=== PATIENT | male | born 1935 | race Caucasian/White ===

== ENCOUNTER 2016-06-09 13:11 | Inpatient (IN) | payer MEDICARE, BC ==
[~2016-06-09] VITALS: Ht 185.4 cm; Wt 124.0 kg
[2016-06-09] VITALS (12 sets, daily range): BP systolic 100–131; BP diastolic 60–84; PULSE 71–133; RESP 16–23; TEMP 98.2–98.6; O2SAT 90–97
[~2016-06-09 13:11] MED LIST: CITA-48 PO; DOCU100T9 PO; FURO1TAB93 PO; HYDR-3580 PO; OMEG100010 PO; POTA-243 PO; RIVA15 PO; TOPR50TA PO; XANA1TAB6 PO; XANA2TAB2 PO
[2016-06-09] MEDS ORDERED: SODIUM CHLORIDE 0.9% FLUSH 10 ML FLUSH IVF PRN ×2 (13:30)
[2016-06-09] MEDS ORDERED: DILTIAZEM INJ 125 MG in SODIUM CHLORIDE 0.9% INJ 100 ML IV SCH (13:30)
[2016-06-09] MEDS ORDERED: DILTIAZEM HCL 25 MG/5 ML VIAL IV ONE (13:30)
--- NOTE | 2016-06-09 13:43 | RADRPT ---
EXAM DATE/TIME: 06/09/2016 13:21 [facility] COMPARISON: CHEST PA & LAT, February 09, 2013, 10:31. INDICATIONS : Chest pain, shortness of breath, and cough. MEDICAL HISTORY : None. SURGICAL HISTORY : Valve replacement. Stent. ENCOUNTER: Initial ACUITY: 3 days PAIN SCORE: 4/10 LOCATION: Bilateral chest FINDINGS: Cardiomegaly, sternotomy wires and aortic calcification. A minimal left lower lobe airspace disease. CONCLUSION: Left basilar airspace disease. Moe Houston MD on June 09, 2016 at 13:40 Board Certified Radiologist. This report was verified electronically.
[2016-06-09] MEDS ORDERED: XARE20TA PO (13:48)
[2016-06-09] MEDS ORDERED: FURO1TAB62 PO (13:48)
[2016-06-09] MEDS ORDERED: OMEG100010 PO (13:48)
[2016-06-09] MEDS ORDERED: FERR325T PO (13:48)
[2016-06-09] MEDS ORDERED: COLA100C3 PO (13:48)
[2016-06-09] MEDS ORDERED: TOPR50TA PO (13:48)
[2016-06-09] MEDS ORDERED: HYDR-3115 PO (13:48)
[2016-06-09] MEDS ORDERED: POTA-88 PO (13:48)
[2016-06-09] MEDS ORDERED: LIPI20TA PO (13:48)
[2016-06-09] MEDS ORDERED: SERT-132 PO (13:48)
[2016-06-09 13:53] LABS: AUTOMATED NEUTROPHIL # 6.7 TH/MM3 (1.8-7.7); BASOPHIL % 0.7 % (0.0-2.0); EOSINOPHIL % 0.3 % (0.0-4.0); HEMATOCRIT 45.5 % (39.0-51.0); LYMPH % 1.6 % (9.0-44.0); LYMPHOCYTE # 0.1 TH/MM3 (1.0-4.8); MEAN CELL VOLUME 78.7 FL (80.0-100.0); MEAN CORPUSCULAR HEMOGLOBIN 25.8 PG (27.0-34.0); MEAN CORPUSCULAR HGB CONC 32.8 % (32.0-36.0); MONO % 4.6 % (0.0-8.0); NEUT % 92.8 % (16.0-70.0); PLATELET COUNT 78 TH/MM3 (150-450); RED BLOOD COUNT 5.79 MIL/MM3 (4.50-5.90); RED CELL DISTRIBUTION WIDTH 16.8 % (11.6-17.2); WHITE BLOOD COUNT 7.2 TH/MM3 (4.0-11.0)
[2016-06-09 13:54] LABS: HEMO FLAGS AUTO DIFF
[2016-06-09] MEDS ORDERED: AZITHROMYCIN INJ 500 MG in SODIUM CHLOR 0.9% 250 ML INJ 250 ML IV ONE (14:00)
[2016-06-09] MEDS ORDERED: cefTRIAXone INJ 1,000 MG in SODIUM CHLORIDE 0.9% INJ 100 ML IV ONE (14:00)
[2016-06-09 14:02] LABS: APTT (PATIENT) 31.1 SEC (24.3-30.1); INTERNATIONAL NORMALIZED RATIO 1.4 RATIO; PROTHROMBIN TIME - PATIENT 15.4 SEC (9.8-11.6)
[2016-06-09 14:10] LABS: BICARBONATE 23.1 MEQ/L (21.0-32.0); MAGNESIUM 2.1 MG/DL (1.5-2.5); POTASSIUM 3.7 MEQ/L (3.5-5.1)
[2016-06-09 14:39] LABS: BANDS 19 % (0-6); NEUTROPHIL # MANUAL DIFF 6.8 TH/MM3 (1.8-7.7); POLYS (SEG NEUTROPHILS) 75 % (16-70); WBC DIFF SAMPLE 100
[2016-06-09 14:40] LABS: OVALOCYTES 1+ (NORMAL); PLATELET ESTIMATE SMEAR LOW (NORMAL); PLATELET MORPHOLOGY NORMAL (NORMAL); SCAN/DIFF FINAL DIFF MANUAL
--- NOTE | 2016-06-09 14:42 | PD ---
HPI Chief Complaint: Cardiac Complaint Time Seen by Provider: 13:16 Travel History International Travel<30 days: No Contact w/Intl Traveler<30days: No Traveled to known affect area: No History of Present Illness HPI The patient's 80 years old. He arrives here with 3-4 days of generalized weakness. The reports he was rigorous this morning. EMS reports on scene the pulse was almost 200. He received diltiazem and it decreased to about 100. The time of my exam the patient offers no weakness complaint as well as shortness of breath. He denies chest pain. PFSH Past Medical History Hx Anticoagulant Therapy: Yes Arthritis: Yes Asthma: No Atrial Fibrillation: Yes Autoimmune Disease: No Anxiety: Yes Heart Rhythm Problems: Yes Cancer: No Cardiac Catheterization: Yes Cardiovascular Problems: Yes High Cholesterol: Yes Chemotherapy: No Chest Pain: Yes Congestive Heart Failure: No COPD: No Cerebrovascular Accident: No Diabetes: No Endocrine: No GERD: No Genitourinary: No Hiatal Hernia: No Hypertension: Yes Immune Disorder: No Kidney Stones: No Musculoskeletal: No Neurologic: No Psychiatric: No Reproductive: No Respiratory: No Migraines: No Radiation Therapy: No Renal Failure: No Seizures: No Sickle Cell Disease: No Sleep Apnea: No Thyroid Disease: No Ulcer: No Past Surgical History Abdominal Aneurysm Repair: Yes (2010 ) Abdominal Surgery: Yes AICD: No Arteriovenous Shunt: No Cardiac Surgery: Yes (AORTIC ANEURYSM REPAIR) Ear Surgery: No Eye Surgery: No Genitourinary Surgery: No Gynecologic Surgery: No Insulin Pump: No Joint Replacement: No Oral Surgery: No Pacemaker: No Thoracic Surgery: No Valve Replacement: Yes (2010) Other Surgery: Yes (BILAT FEMORAL ANEURYSM REPAIR WITH STENTS PLACED) Social History Alcohol Use: No Tobacco Use: No (QUIT 25+ YRS AGO, MOKES FOR 15+ YRS 3/4 PPD OR LESS) Substance Use: No Allergies-Medications (Allergen,Severity, Reaction): Coded Allergies: No Known Allergies (Unverified , 02/08/13) Reported Meds & Prescriptions Reported Meds & Active Scripts Active Reported Wolford 3 1000 mg (Wolford-3 Fatty Acids) 1 Cap Cap 3,000 Mg PO DAILY Toprol XL (Metoprolol Succinate) 50 Mg Tab 50 Mg PO DAILY Lipitor (Atorvastatin Calcium) 20 Mg Tab 20 Mg PO HS Sertraline (Sertraline HCl) 50 Mg Tab 50 Mg PO DAILY Ferrous Sulfate 325 Mg Tab 325 Mg PO DAILY Xarelto (Rivaroxaban) 20 Mg Tab 20 Mg PO DAILY IN THE EVENING Colace (Docusate Sodium) 100 Mg Cap 100 Mg PO DAILY PRN Klor-Con M10 (Potassium Chloride Microencaps) 10 Meq Tab 10 Meq PO TWICE A WEEK Lasix (Furosemide) 20 Mg Tab 20 Mg PO WEEKLY Vicodin Hp (Hydrocodone-Acetaminophen) 10-300 Tab 0.5 Tab PO Q6H PRN Review of Systems Except as stated in HPI: all other systems reviewed are Neg General / Constitutional: No: Fever Physical Exam Narrative GENERAL: 80 yo M, WNWD, mild distress SKIN: Warm and dry. HEAD: Atraumatic. Normocephalic. EYES: Pupils equal and round. No scleral icterus. No injection or drainage. ENT: No nasal bleeding or discharge. Mucous membranes pink and moist. NECK: Trachea midline. No JVD. CARDIOVASCULAR: Irregular. Tachycardia. RESPIRATORY: No accessory muscle use. Clear to auscultation. Breath sounds equal bilaterally. GASTROINTESTINAL: Abdomen soft, non-tender, nondistended. Hepatic and splenic margins not palpable. MUSCULOSKELETAL: Extremities without clubbing, cyanosis, or edema. No obvious deformities. NEUROLOGICAL: Awake and alert. No obvious cranial nerve deficits. Motor grossly within normal limits. Five out of 5 muscle strength in the arms and legs. Normal speech. PSYCHIATRIC: Appropriate mood and affect; insight and judgment normal. Data Data Last Documented VS Vital Signs Date Time Temp Pulse Resp B/P Pulse Ox O2 Delivery O2 Flow Rate FiO2 06/09/16 14:03 124 18 131/62 93 Nasal Cannula 2 06/09/16 13:27 98.6 VS reviewed Orders Ecg Monitoring (06/09/16 13:24) Blood Pressure (06/09/16 13:24) Iv Access Insert/Monitor (06/09/16 13:24) Oximetry (06/09/16 13:24) Vital Signs (06/09/16 13:24) Diltiazem Inj (Cardizem Inj) (06/09/16 13:30) Sodium Chloride 0.9% Flush (Ns Flush) (06/09/16 13:30) Diltiazem Inj (Cardizem Inj) (06/09/16 13:30) Electrocardiogram (06/09/16 13:24) Basic Metabolic Panel (Bmp) (06/09/16 13:24) B-Type Natriuretic Peptide (06/09/16 13:24) Ckmb (Isoenzyme) Profile (06/09/16 13:24) Complete Blood Count With Diff (06/09/16 13:24) Magnesium (Mg) (06/09/16 13:24) Prothrombin Time / Inr (Pt) (06/09/16 13:24) Act Partial Throm Time (Ptt) (06/09/16 13:24) Troponin I (06/09/16 13:24) Chest, Single Ap (06/09/16 13:24) Sodium Chloride 0.9% Flush (Ns Flush) (06/09/16 13:30) Blood Culture (06/09/16 13:46) Ceftriaxone Inj (Rocephin Inj) (06/09/16 14:00) Azithromycin Inj (Zithromax Inj) (06/09/16 14:00) Admit Order (Ed Use Only) (06/09/16 14:46) Labs Laboratory Tests Test 06/09/16 06/09/16 06/09/16 12:30 13:30 13:40 White Blood Count 7.2 TH/MM3 Red Blood Count 5.79 MIL/MM3 Hemoglobin 14.9 GM/DL Hematocrit 45.5 % Mean Corpuscular Volume 78.7 FL Mean Corpuscular Hemoglobin 25.8 PG Mean Corpuscular Hemoglobin 32.8 % Concent Red Cell Distribution Width 16.8 % Platelet Count 78 TH/MM3 Mean Platelet Volume 8.7 FL Neutrophils (%) (Auto) 92.8 % Lymphocytes (%) (Auto) 1.6 % Monocytes (%) (Auto) 4.6 % Eosinophils (%) (Auto) 0.3 % Basophils (%) (Auto) 0.7 % Neutrophils # (Auto) 6.7 TH/MM3 Lymphocytes # (Auto) 0.1 TH/MM3 Monocytes # (Auto) 0.3 TH/MM3 Eosinophils # (Auto) 0.0 TH/MM3 Basophils # (Auto) 0.0 TH/MM3 CBC Comment AUTO DIFF Differential Total Cells 100 Counted Neutrophils % (Manual) 75 % Band Neutrophils % 19 % Lymphocytes % 4 % Monocytes % 2 % Neutrophils # (Manual) 6.8 TH/MM3 Differential Comment FINAL DIFF MANUAL Platelet Estimate LOW Platelet Morphology Comment NORMAL Ovalocytes 1+ Sodium Level 139 MEQ/L Potassium Level 3.7 MEQ/L Chloride Level 106 MEQ/L Carbon Dioxide Level 23.1 MEQ/L Anion Gap 10 MEQ/L Blood Urea Nitrogen 21 MG/DL Creatinine 0.99 MG/DL Estimat Glomerular Filtration 73 ML/MIN Rate Random Glucose 129 MG/DL Calcium Level 8.6 MG/DL Magnesium Level 2.1 MG/DL Total Creatine Kinase 56 U/L Troponin I 0.03 NG/ML Prothrombin Time 15.4 SEC Prothromb Time International 1.4 RATIO Ratio Activated Partial 31.1 SEC Thromboplast Time B-Type Natriuretic Peptide 285 PG/ML MDM Medical Decision Making Medical Screen Exam Complete: Yes Emergency Medical Condition: Yes Medical Record Reviewed: Yes Differential Diagnosis NSTEMI, unstable angina, coronary vasospasm, PE, PTX, aortic dissection, pericarditis, myocarditis, endocarditis, PNA, esophageal disease, aneurysm, musculoskeletal etiologies, anxiety, cocaine/sympathomimetic abuse Narrative Course CBC & BMP Diagram 06/09/16 12:30 BNP 285 Tn 0.03 EKG: atrial fibrillation, rate 135 BNP 285 INR 1.4 Last 24 hours Impressions Chest X-Ray 06/09/16 1324 Signed Impressions: Service Date/Time: Thursday, June 09, 2016 13:21 - CONCLUSION: Left basilar airspace disease. Moe Houston MD Patient has A. fib with RVR and a left base pneumonia. Diltiazem gtt started. Rocephin/Azithromycin started. Blood cultures drawn. Heart rate is about 117 at 2:50 PM, the time of admission. Patient resting comfortably in his room speaking full sentences. Sepsis Criteria SIRS Criteria (2 or more): Heart rate over 90, WBC > 77642, < 4000 or > 10% bands Sepsis Criteria (SIRS+source): Infect source susp/known Diagnosis Primary Impression: Atrial fibrillation with RVR Additional Impressions: PNA (pneumonia) Qualified Code: J18.1 - Pneumonia of left lower lobe due to infectious organism Sepsis Qualified Code: A41.9 - Sepsis, due to unspecified organism Admitting Information Admitting Physician Requests: Admit Osbaldo Grove MD Jun 09, 2016 14:42
[2016-06-09] MEDS ORDERED: DOCUSATE SODIUM 100 MG CAP PO PRN (16:00)
[2016-06-09] MEDS: METOPROLOL SUCCINATE 50 MG EXTENDED RELEASE TAB PO SCH (16:29)
[2016-06-09] MEDS: FERROUS SULFATE 325 MG (65 MG ELEMENTAL IRON) TAB PO SCH (16:29)
[2016-06-09] MEDS ORDERED: SODIUM CHLORIDE 0.9% FLUSH 10 ML FLUSH IV FLUSH PRN (17:00)
[2016-06-09] MEDS ORDERED: ONDANSETRON HCL 4 MG/2 ML VIAL IVP PRN (17:00)
[2016-06-09] MEDS ORDERED: ACETAMINOPHEN 325 MG TAB PO PRN (17:00)
[2016-06-09] MEDS: SERTRALINE HCL 50 MG TAB PO SCH (17:09)
--- NOTE | 2016-06-09 17:33 | MH ---
DATE OF ADMISSION 06/09/2016 ADMITTING PHYSICIAN: WINSTON HEATH MD CHIEF COMPLAINT Weakness and tiredness HISTORY OF PRESENT ILLNESS The patient is a pleasant 80 year old white male who presented to the emergency room with complaints of 3-4 days of generalized weakness. Per patient, two days ago he had abdominal pain, nausea and vomiting, also had been having loose stools and has no noticed that he has been becoming progressively weak. He denies any chest pain or palpitation. He denies any shortness of breath. The [facility] Medical Service reports on the scene the pulses was almost 200. He received Diltiazem en route and it decreased to about 100. At the time of presentation to the emergency room, the pulse was noted to be 124 and the patient was started on Diltiazem drip. PAST MEDICAL HISTORY 1. Atrial fibrillation 2. Congestive heart failure 3. Hypertension 4. Hyperlipidemia 5. Coronary artery disease 6. History of aneurysms PAST SURGICAL HISTORY 1. History of abdominal aneurysm repair in 2010. 2. History of aortic aneurysm repair 3. 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 SOCIAL HISTORY Quit smoking 25 years ago. Smoked for about 15 years less than one pack per day. No alcohol or illicit drug use. FAMILY HISTORY Significant for coronary artery disease. ALLERGIES NO KNOWN DRUG ALLERGIES MEDICATIONS Please see the reconciled medication list. REVIEW OF SYSTEMS Positive for generalized weakness, nausea, vomiting and abdominal pain. PHYSICAL EXAMINATION GENERAL: An 80 year old white male who is lying in bed in no acute distress. This is after patient has received Diltiazem. HEENT: Head is normocephalic, atraumatic. Pupils are equal, round and reactive to light and accommodation. Extraocular movements are intact. NECK: Supple. Trachea is in midline. No jugular venous distention. CARDIOVASCULAR: Irregularly irregular. Tachycardia. No murmur. RESPIRATORY: Clear to auscultation bilaterally. No accessory muscle use. GASTROINTESTINAL: Abdomen is soft, nontender, nondistended. Bowel sounds heard in all four quadrants. MUSCULOSKELETAL: No cyanosis, congestion or edema. NEUROLOGIC: Awake and alert times four. No focal deficit. PSYCHIATRIC: Appropriate mood and affect. Insight and judgment normal. VITAL SIGNS: Blood pressure is 131/62, pulse 124, pulse ox 93% on room air, temperature is 98.6, respirations are 18. LABORATORY DATA WBCs 7.2, hemoglobin 14.9, hematocrit 45.5, platelets 78,000. Sodium 139, potassium 3.7, BUN 21, creatinine 0.99, magnesium 2.1, troponin I 0.03. PT 15.4, INR 1.4, BNP 285. IMAGING STUDIES Chest x-ray - left basilar airspace disease, cardiomegaly, sternotomy ____ aortic calcification. CARDIOLOGY STUDIES 12 lead electrocardiogram, irregularly irregular with tachycardia. IMPRESSION 1. Atrial fibrillation with rapid ventricular rate. 2. Pneumonia 3. Possible sepsis 4. Generalized weakness 5. Hypertension 6. Hyperlipidemia 7. History of coronary artery disease 8. History of abdominal aneurysm repair. 9. History of bilateral femoral aneurysm repair. 10. Depression PLAN We will admit the patient. Start the patient on continuous telemetry monitoring. Check troponin q 6 hrs x2. We will continue Diltiazem drip, titrate accordingly. Consult cardiology. We will monitor the patient's vitals closely. We will start the patient empirically on Rocephin and Azithromycin. We will monitor the CBC and BMP. We will do oxygen two liters and maintain the pulse ox above 92%. We will also request lipid profile as well as TSH and free T4. We will request a 2-D echocardiogram. We will continue the home medications as appropriate. Deep venous thrombosis prophylaxis with Xarelto. GI prophylaxis with protein pump inhibitor. Further management depends upon the hospital course. We will monitor the patient closely during the hospital stay. The patient is acute ill,has presented with atrial fibrillation with rapid ventricular rate and pneumonia. Need to rule out sepsis, also need to rule out any cardiac factors. Will need a complete cardiology evaluation and IV antibiotics. The patient meets inpatient criteria for three midnights. Anticipate discharge to home with home health when stable. JONI
[2016-06-09] MEDS ORDERED: DIATRIZOATE MEGLUM/DIATRIZOATE SOD 9 ML CUP PO ONE (18:45)
--- NOTE | 2016-06-09 18:47 | EKG ---
Date Performed: 06/09/2016 Time Performed: 13:19:31 PTAGE: 80 years EKG: ATRIAL FIBRILLATION WITH RAPID VENTRICULAR RESPONSE MILD ST CHANGES ABNORMAL ECG PREVIOUS TRACING : 02/08/2013 14.04 Compared to prior tracing no significant change DOCTOR: Jose Malik Interpretating Date/Time 06/09/2016 18:47:19
[2016-06-09] MEDS: RIVAROXABAN 20 MG TAB PO SCH (18:49)
[2016-06-09] MEDS: ATORVASTATIN 20 MG TAB PO SCH (20:42)
[2016-06-09] MEDS: FAMOTIDINE 20 MG TAB PO SCH (20:42)
[2016-06-09] MEDS: DOCUSATE SODIUM 100 MG CAP PO SCH (20:42)
[2016-06-09] MEDS: SODIUM CHLORIDE 0.9% FLUSH 10 ML FLUSH IV FLUSH SCH (20:43)
[2016-06-09] MEDS: ACETAMINOPHEN/HYDROcodone 325 MG/10 MG TAB PO PRN (20:46)
[2016-06-10] VITALS (26 sets, daily range): BP systolic 103–123; BP diastolic 64–73; PULSE 68–98; RESP 18–20; TEMP 97.2–98.3; O2SAT 94–96
[2016-06-10 04:35] LABS: BICARBONATE 28.3 MEQ/L (21.0-32.0); POTASSIUM 3.6 MEQ/L (3.5-5.1)
[2016-06-10 04:44] LABS: FREE T4 1.29 NG/DL (0.76-1.46); HDL CHOLESTEROL 11.7 MG/DL (40.0-60.0)
[2016-06-10] MEDS: FAMOTIDINE 20 MG TAB PO SCH ×2 (10:04→19:59)
[2016-06-10] MEDS: METOPROLOL SUCCINATE 50 MG EXTENDED RELEASE TAB PO SCH (10:04)
[2016-06-10] MEDS: FERROUS SULFATE 325 MG (65 MG ELEMENTAL IRON) TAB PO SCH (10:04)
[2016-06-10] MEDS: SERTRALINE HCL 50 MG TAB PO SCH (10:05)
[2016-06-10] MEDS: DOCUSATE SODIUM 100 MG CAP PO SCH ×2 (10:05→19:59)
--- NOTE | 2016-06-10 11:07 | MB ---
cc: JHON PEREZ DATE OF CONSULTATION: 06/10/2016 DATE OF : 1935 REASON FOR CONSULTATION Atrial fibrillation with RVR HISTORY OF PRESENT ILLNESS 80-year-old male with past medical history significant for atrial fibrillation on chronic oral anticoagulation, mild LV systolic dysfunction with EF of 40%, hypertension, hyperlipidemia, obesity and history of heart valve replacement, who received his care in [place], presents to the hospital with four days of nausea, vomiting, and weakness. He denied chest pain, palpitations or shortness of breath. He was brought into the emergency department via EMS who found him in A-fib with RVR. In the emergency department he was started on Cardizem drip. Cardiology has been consulted for further management and evaluation of atrial fibrillation. REVIEW OF SYSTEMS: Negative except for what is mentioned in the HPI. PAST MEDICAL HISTORY: 1. Atrial fibrillation 2. Mild LV dysfunction. 3. Hypertension. 4. Hyperlipidemia. 5. Coronary artery disease. 6. History of aneurysm. PAST SURGICAL HISTORY: Aortic valve replacement. Abdomen repair in 2010. Ascending aortic aneurysm repair. Bilateral femoral aneurysm with stents placed. SOCIAL HISTORY: Former smoker. No alcohol. No illicit drug use. FAMILY HISTORY: Noncontributory. ALLERGIES: NO KNOWN DRUG ALLERGIES. CARDIAC HOME MEDICATIONS 1. Lipitor 20 milligrams p.o. daily 2. Lasix 20 milligrams p.o. daily. 3. Metoprolol 50 milligrams p.o. daily 4. Xarelto 20 milligrams p.o. daily. PHYSICAL EXAMINATION Vital signs: Temperature 97.2, respiratory rate 18, heart rate 73, blood pressure 117/71, O2 sat 95% NC. GENERAL: Awake, alert, oriented, in no acute distress. NECK: No JVD. No carotid bruits. HEART: Irregularly irregular. No murmurs, rubs, or gallops. LUNGS: Clear to auscultation bilaterally. ABDOMEN: Obese. Positive bowel sounds, soft, nontender, nondistended. EXTREMITIES: No clubbing, cyanosis or edema, pulses throughout. DATA CBC: hemoglobin 14, hematocrit 45, platelet count 78, INR 1.4. Chemistries: sodium 137, potassium 3.6, BUN 20, creatinine 0.91, troponin 0.03, 0.02 and 0.02. BNP 285, triglycerides 163, cholesterol 73, HDL 11.7, lipase 81. IMAGING STUDIES: Chest x-ray: Left basilar airspace disease. There is aortic bioprosthesis present EKG: Atrial fibrillation with rapid ventricular response and nonspecific ST changes. ASSESSMENT/PLAN 80-year-old male admitted with atrial fibrillation with rapid ventricular response in the setting of abdominal pain, nausea and vomiting. He remains on afebrile and hemodynamically stable. Heart rate has been successfully controlled on diltiazem drip which now at a rate of 5. He is already on chronic oral anticoagulation at home. It is reasonable to believe that his exacerbation of atrial fibrillation was due to the nausea, the vomiting/GI symptoms that he has been suffering in the last days. Given that his rate is better controlled, I will titrate diltiazem drip off and increase Toprol XL to 100mg PO daily. Order 2-D echocardiogram. RECOMMENDATIONS 1. Wean cardizem drip and increase Toprol XL 2. 2-D echocardiogram. 3. Avoid electrolyte abnormalities. 4. Continue home medications for heart disease. Thank you for the opportunity to take part in the care of this patient. Jhon Perez MD [employer] SALES REPRESENTATIVE/CAT /9:31 AM /10:29 AM JONI
[2016-06-10] MEDS: DILTIAZEM HCL 30 MG TAB PO SCH ×3 (11:30→20:00)
[2016-06-10] MEDS ORDERED: IOHEXOL 350 MG/ML 10 ML VIAL (for RAD DIAG) IV ONE (14:00)
[2016-06-10] MEDS: cefTRIAXone INJ 1,000 MG in SODIUM CHLORIDE 0.9% INJ 100 ML IV SCH (14:13)
[2016-06-10] MEDS: AZITHROMYCIN INJ 500 MG in SODIUM CHLOR 0.9% 250 ML INJ 250 ML IV SCH (14:13)
--- NOTE | 2016-06-10 15:02 | RADRPT ---
EXAM DATE/TIME: 06/10/2016 13:47 [facility] COMPARISON: No previous studies available for comparison. INDICATIONS : Abdomen pain. IV CONTRAST: 100 cc Omnipaque 350 (iohexol) IV ORAL CONTRAST: Prescribed oral contrast ingested. RADIATION DOSE: 22.03 CTDIvol (mGy) MEDICAL HISTORY : Hypertension. SURGICAL HISTORY : Abdominal aortic aneurysm repair. ENCOUNTER: Initial ACUITY: 1 day PAIN SCALE: 4/10 LOCATION: Bilateral abdomen. TECHNIQUE: Volumetric scanning of the abdomen was performed. Using automated exposure control and adjustment of the mA and/or kV according to patient size, radiation dose was kept as low as reasonably achievable to obtain optimal diagnostic quality images. FINDINGS: LOWER LUNGS: The visualized lower lungs are clear. LIVER: 4.2 cm calcified gallstone. No pericholecystic inflammatory changes. There is several scattered hyper densities in the liver best seen on liver windows. 2.4 x 1.4 cm hyperdensity in the right lobe on daniel ge #20. 1.7 x 1.3 cm peripheral hyperdensity in the posterior right lobe on images #23. SPLEEN: Normal size without lesion. PANCREAS: Within normal limits. KIDNEYS: Normal in size and shape. There is no mass, stone, or hydronephrosis. ADRENAL GLANDS: Within normal limits. AORTA/RETROPERITONEAL: Bilateral iliac artery stents. Aortic diameter are within normal limits. BOWEL/MESENTERY: No bowel dilatation. No free air or free fluid. ABDOMINAL WALL: Within normal limits. MUSCULOSKELETAL: Degenerative findings lumbar spine. POST CONTRAST: No abnormal areas of enhancement are seen. CONCLUSION: 1. Cholelithiasis. No pericholecystic inflammatory changes. 2. Faint focal hyperdensities in the liver are nonspecific. Recommend routine followup abdominal MRI with and without contrast to evaluate for hepatic mass versus vascular phenomenon. Dov Moore MD on June 10, 2016 at 14:55 Board Certified Radiologist. This report was verified electronically.
--- NOTE | 2016-06-10 16:58 | HHI.PR ---
Subjective Remarks 80yr old male seen and examined today. No CP/SOB/NVD/palpitations Objective Objective Results - Vital Signs Date Time Temp Pulse Resp B/P Pulse Ox O2 Delivery O2 Flow Rate FiO2 06/10/16 15:30 97.4 71 20 103/68 95 06/10/16 12:15 82 06/10/16 11:30 98.0 81 20 115/72 94 06/10/16 11:30 81 06/10/16 07:45 97.2 73 18 117/71 95 06/10/16 07:45 73 06/10/16 07:45 95 Nasal Cannula 1.00 06/10/16 07:30 73 06/10/16 06:00 69 06/10/16 05:00 71 06/10/16 04:00 Nasal Cannula 2.00 06/10/16 04:00 98.0 72 18 123/73 96 06/10/16 04:00 72 06/10/16 03:00 74 06/10/16 02:00 68 06/10/16 01:00 72 06/10/16 00:00 98.3 88 20 113/64 96 06/10/16 00:00 89 06/10/16 00:00 Nasal Cannula 2.00 06/09/16 23:00 87 06/09/16 22:00 90 06/09/16 21:00 84 06/09/16 20:00 98.2 71 20 130/76 95 06/09/16 20:00 71 06/09/16 20:00 Nasal Cannula 2.00 06/09/16 19:40 96 Nasal Cannula 2.00 06/09/16 18:00 74 16 100/60 97 Nasal Cannula 2 06/09/16 17:00 90 21 111/66 95 Nasal Cannula 2 I/O 06/09/16 06/09/16 06/09/16 06/10/16 06/10/16 06/10/16 07:00 15:00 23:00 07:00 15:00 23:00 Intake Total 550 ml Output Total 700 ml Balance -150 ml Intake Oral 480 ml IV Total 70 ml Output Urine Total 700 ml # Bowel Movements 0 Result Diagram: 06/09/16 1230 06/10/16 0335 Other Results Laboratory Tests Test 06/09/16 06/10/16 21:06 03:35 Troponin I 0.02 0.02 Sodium Level 137 Potassium Level 3.6 Chloride Level 101 Carbon Dioxide Level 28.3 Anion Gap 8 Blood Urea Nitrogen 20 Creatinine 0.91 Estimat Glomerular Filtration 80 Rate Random Glucose 96 Calcium Level 8.0 Triglycerides Level 163 Cholesterol Level 73 LDL Cholesterol 29 HDL Cholesterol 11.7 Cholesterol/HDL Ratio 6.23 Lipase 81 Free Thyroxine 1.29 Thyroid Stimulating Hormone 1.360 3rd Gen Date/Time Procedure Status Source Growth 06/09/16 13:45 Aerobic Blood Culture - Preliminary Resulted Blood Peripheral NO GROWTH IN 1 DAY 06/09/16 13:45 Anaerobic Blood Culture - Preliminary Resulted Blood Peripheral NO GROWTH IN 1 DAY ROS General: No: Fatigue, Weakness, Other HEENT: No: Sore Throat, Dysphagia, Other Cardiac: No: Chest Pain, Edema, Palpitations, Other Pulmonary: No: Cough, SOB, Wheezing, Other GI: No: Abdominal Pain, BM, Diarrhea, N/V, Other /COMBINE OPERATOR: No: Dysuria, Urgency, Other Neuro/MS: No: Lightheaded, Confusion, Other Psych: No: Anxiety, Depression, Other Skin: No: Itching, Rash, Other Physical Exam Physical Exam PHYSICAL EXAMINATION GENERAL: This is a well-developed, well-nourished male who appears to be in no acute distress. He is alert and awake. HEAD: Normocephalic without any lesion or mass noted. Facial features appear symmetric. EYES: Perrla, No icterus. OROPHARYNGEAL: Oropharynx without erythema or edema. MOUTH/THROAT: Buccal mucosa is moist NECK: Supple. No nuchal rigidity or lymphadenopathy. Trachea midline without deviation. Thyroid not palpable, no bruits appreciated. CARDIAC: Irregularly irregular. LUNGS: Clear to auscultation bilaterally. ABDOMEN: Soft, nontender, no organomegaly or masses. Bowel sounds are heard in all four quadrants. No rebound. No guarding. EXTREMITIES: Trace edema. NEUROLOGICAL: Patient mood and affect appropriate. SKIN:Warm and moist PSYCH: Mood and affect appropriate A/P Assessment and Plan Assessment/plan: 1. Atrial fibrillation with rapid ventricular rate. 2. Pneumonia 3. Possible sepsis 4. Generalized weakness 5. Hypertension 6. Hyperlipidemia 7. History of coronary artery disease 8. History of abdominal aneurysm repair. 9. History of bilateral femoral aneurysm repair. 10. Depression PLAN Continuous telemetry monitoring. Troponin q6hrs x2 neg HR is controlled now. On cardizem 30mg po q6hrs. Appreciate cardiology input. Continue Rocephin and Azithromycin. oxygen 2L and maintain the pulse ox above 92%. Low platelets: rpt in am. Lipids/TSH wnl. 2-D echo pending DVT prophylaxis with Xarelto. GI prophylaxis with protein pump inhibitor. If stable will consider dc in am. Dw patient/RN. Karen Shah MD Jun 10, 2016 16:58
[2016-06-10] MEDS: RIVAROXABAN 20 MG TAB PO SCH (17:46)
[2016-06-10] MEDS: ATORVASTATIN 20 MG TAB PO SCH (20:00)
[2016-06-10] MEDS: SODIUM CHLORIDE 0.9% FLUSH 10 ML FLUSH IV FLUSH SCH (20:00)
[2016-06-11] VITALS (26 sets, daily range): BP systolic 107–125; BP diastolic 66–78; PULSE 63–106; RESP 17–20; TEMP 97.4–98.4; O2SAT 93–97
[2016-06-11 06:54] LABS: HEMATOCRIT 41.7 % (39.0-51.0); MEAN CELL VOLUME 78.9 FL (80.0-100.0); MEAN CORPUSCULAR HEMOGLOBIN 25.1 PG (27.0-34.0); MEAN CORPUSCULAR HGB CONC 31.9 % (32.0-36.0); PLATELET COUNT 62 TH/MM3 (150-450); RED BLOOD COUNT 5.29 MIL/MM3 (4.50-5.90); RED CELL DISTRIBUTION WIDTH 16.4 % (11.6-17.2); WHITE BLOOD COUNT 5.8 TH/MM3 (4.0-11.0)
[2016-06-11 07:00] LABS: REVIEW FLAG FINAL
[2016-06-11] MEDS: SODIUM CHLORIDE 0.9% FLUSH 10 ML FLUSH IV FLUSH SCH ×2 (08:54→20:32)
[2016-06-11] MEDS: SERTRALINE HCL 50 MG TAB PO SCH (08:54)
[2016-06-11] MEDS: DILTIAZEM HCL 30 MG TAB PO SCH ×4 (08:54→20:32)
[2016-06-11] MEDS: FAMOTIDINE 20 MG TAB PO SCH ×2 (08:54→20:32)
[2016-06-11] MEDS: METOPROLOL SUCCINATE 50 MG EXTENDED RELEASE TAB PO SCH (08:54)
[2016-06-11] MEDS: FERROUS SULFATE 325 MG (65 MG ELEMENTAL IRON) TAB PO SCH (08:55)
[2016-06-11] MEDS: DOCUSATE SODIUM 100 MG CAP PO SCH ×2 (08:55→20:32)
[2016-06-11] MEDS: cefTRIAXone INJ 1,000 MG in SODIUM CHLORIDE 0.9% INJ 100 ML IV SCH (13:11)
[2016-06-11] MEDS: AZITHROMYCIN INJ 500 MG in SODIUM CHLOR 0.9% 250 ML INJ 250 ML IV SCH (15:00)
--- NOTE | 2016-06-11 15:34 | PD.CARD.PN ---
Subjective Subjective Remarks no complaints Objective Medications Current Medications Medications (Trade) Dose Ordered Sig/Chanel Route Start Time Stop Time Status Last Admin (Cardizem Inj/NS Inj) 125 ml @ 0 mls/hr TITRATE IV 06/09/16 13:30 06/09/16 13:59 (Lipitor) 20 mg HS PO 06/09/16 21:00 06/10/16 20:00 (Ferrous Sulfate) 325 mg DAILY PO 06/09/16 16:00 06/11/16 08:55 ([place] 10-325 Mg) 0.5 tab Q6H PRN PO 06/09/16 16:00 06/09/16 20:46 (Toprol Xl) 50 mg DAILY PO 06/09/16 16:00 06/11/16 08:54 (Zoloft) 50 mg DAILY PO 06/09/16 16:00 06/11/16 08:54 (NS Flush) 2 ml UNSCH PRN IV FLUSH 06/09/16 17:00 (NS Flush) 2 ml BID IV FLUSH 06/09/16 21:00 06/11/16 08:54 (Tylenol) 650 mg Q4H PRN PO 06/09/16 17:00 (Zofran Inj) 4 mg Q6H PRN IVP 06/09/16 17:00 Docusate Sodium 100 mg 100 mg Q12H PO 06/09/16 21:00 06/11/16 08:55 Ceftriaxone Sodium 1000 mg/ Sodium Chloride 100 ml @ 200 mls/hr Q24H IV 06/10/16 13:00 06/11/16 13:11 (Zithromax Inj/ NS 250 ml Inj) 250 ml @ 250 mls/hr Q24H IV 06/10/16 14:00 06/11/16 15:00 (Pepcid) 20 mg BID PO 06/09/16 21:00 06/11/16 08:54 (Cardizem) 30 mg QID PO 06/10/16 13:00 06/11/16 13:11 Vital Signs / I&O Vital Signs Date Time Temp Pulse Resp B/P Pulse Ox O2 Delivery O2 Flow Rate FiO2 06/11/16 14:00 87 06/11/16 13:00 101 06/11/16 12:00 106 06/11/16 11:00 98.0 93 18 120/78 96 06/11/16 11:00 101 06/11/16 10:00 106 06/11/16 09:37 93 06/11/16 09:00 105 06/11/16 08:00 84 06/11/16 07:00 98.1 73 17 125/77 97 06/11/16 07:00 82 06/11/16 07:00 97 Room Air 06/11/16 06:00 79 06/11/16 05:00 74 06/11/16 04:10 Room Air 06/11/16 04:10 98.4 82 18 110/72 96 06/11/16 04:00 82 06/11/16 03:00 80 06/11/16 02:00 79 06/11/16 01:00 82 06/11/16 00:00 98.2 65 20 118/72 96 06/11/16 00:00 Room Air 06/11/16 00:00 65 06/10/16 23:00 77 06/10/16 22:00 75 06/10/16 21:00 71 06/10/16 20:01 96 Nasal Cannula 2.00 06/10/16 20:00 Room Air 06/10/16 20:00 98.0 68 20 110/71 96 06/10/16 20:00 68 06/10/16 18:00 82 06/10/16 17:00 92 06/10/16 16:00 82 I/O 06/10/16 06/10/16 06/10/16 06/11/16 06/11/16 06/11/16 07:00 15:00 23:00 07:00 15:00 23:00 Intake Total 550 ml 1325 ml 240 ml Output Total 700 ml 475 ml Balance -150 ml 850 ml 240 ml Intake Oral 480 ml 700 ml 240 ml IV Total 70 ml 625 ml Output Urine Total 700 ml 475 ml # Voids 2 2 # Bowel Movements 0 0 1 Physical Exam GENERAL: Well-nourished, well-developed patient. SKIN: Warm and dry. HEAD: Normocephalic. EYES: No scleral icterus. No injection or drainage. NECK: Supple, trachea midline. No JVD or lymphadenopathy. CARDIOVASCULAR: Regular rate and rhythm without murmurs, gallops, or rubs. RESPIRATORY: Breath sounds equal bilaterally. No accessory muscle use. GASTROINTESTINAL: Abdomen soft, non-tender, nondistended. EXTREMITIES: No cyanosis, or edema. NEUROLOGICAL: Awake, alert, and oriented x 3. Non-focal. Laboratory Laboratory Tests Test 06/11/16 04:50 White Blood Count 5.8 TH/MM3 Red Blood Count 5.29 MIL/MM3 Hemoglobin 13.3 GM/DL Hematocrit 41.7 % Mean Corpuscular Volume 78.9 FL Mean Corpuscular Hemoglobin 25.1 PG Mean Corpuscular Hemoglobin 31.9 % Concent Red Cell Distribution Width 16.4 % Platelet Count 62 TH/MM3 Mean Platelet Volume 9.6 FL Imaging Last Impressions Chest X-Ray 06/09/16 1324 Signed Impressions: Service Date/Time: Thursday, June 09, 2016 13:21 - CONCLUSION: Left basilar airspace disease. Moe Houston MD Abdomen CT 06/09/16 0000 Signed Impressions: Service Date/Time: Friday, June 10, 2016 13:47 - CONCLUSION: 1. Cholelithiasis. No pericholecystic inflammatory changes. 2. Faint focal hyperdensities in the liver are nonspecific. Recommend routine followup abdominal MRI with and without contrast to evaluate for hepatic mass versus vascular phenomenon. Dov Moore MD Assessment and Plan Problem List: (1) Atrial fibrillation with RVR Assessment and Plan: Rate control. Converted to SR. Recommendations: Cont rate control Increase Toprol XL to 100mg PO daily D/C Cardizem PO Cont OAC Encourage ambulation Avoid electrolytes abnormalities Will be available on a PRN basis for any other questions or concerns (2) PNA (pneumonia) (3) Sepsis Problem Qualifiers (1) PNA (pneumonia): Qualified Code: J18.1 - Pneumonia of left lower lobe due to infectious organism (2) Sepsis: Qualified Code: A41.9 - Sepsis, due to unspecified organism Herbert Palm MD June 11, 2016 15:34
[2016-06-11] MEDS: RIVAROXABAN 20 MG TAB PO SCH (17:00)
--- NOTE | 2016-06-11 20:04 | EC ---
Study Study Date:06/11/2016 STUDY CONCLUSIONS SUMMARY - Left ventricle: The cavity size was normal. Wall thickness was normal. Systolic function was moderately reduced. The estimated ejection fraction was 35%. Wall motion was normal; there were no regional wall motion abnormalities. - Aortic valve: A bioprosthesis was present. - Left atrium: The atrium was mildly dilated. - Right atrium: The atrium was dilated. - Tricuspid valve: Mild-moderate regurgitation. - Pulmonary arteries: Systolic pressure was mildly increased, estimated to be 41mm Hg. If LV function is below 40, please consider prescribing an ACEI or ARB or document rationale for non-use. PROCEDURE DATA STUDY STATUS: Elective. Procedure: Transthoracic echocardiography. Image quality was good. Scanning was performed from the parasternal, apical, and subcostal acoustic windows. Study completion: The patient tolerated the procedure well. Transthoracic echocardiography. M-mode, complete 2D, complete spectral Doppler, and color Doppler. Patient status: Inpatient. CARDIAC ANATOMY LEFT VENTRICLE: The cavity size was normal. Wall thickness was normal. Systolic function was moderately reduced. The estimated ejection fraction was 35%. Wall motion was normal; there were no regional wall motion abnormalities. AORTIC VALVE: Moderately thickened, moderately calcified leaflets. A bioprosthesis was present. Doppler: Transvalvular velocity was within the normal range. There was no stenosis. No regurgitation. AORTA: Aortic root: The aortic root was normal in size. MITRAL VALVE: Structurally normal valve. Doppler: Transvalvular velocity was within the normal range. There was no evidence for stenosis. Trace regurgitation. LEFT ATRIUM: The atrium was mildly dilated. RIGHT VENTRICLE: The cavity size was normal. Wall thickness was normal. PULMONIC VALVE: Doppler: Transvalvular velocity was within the normal range. There was no evidence for stenosis. No regurgitation. TRICUSPID VALVE: Structurally normal valve. Doppler: Transvalvular velocity was within the normal range. Mild-moderate regurgitation. PULMONARY ARTERY: The main pulmonary artery was normal-sized. Systolic pressure was mildly increased, estimated to be 41mm Hg. RIGHT ATRIUM: The atrium was dilated. PERICARDIUM: There was no pericardial effusion. SYSTEMIC VEINS: Inferior vena cava: The vessel was normal in size. BASIC MEASUREMENTS ADULT Normal Left ventricle LV internal dimension, ED, chordal level, 51.4 mm 43-52 PLAX LV internal dimension, ES, chordal level, *45.5 mm 23-38 PLAX Fractional shortening, chordal level, PLAX *11 % >29 LV posterior wall thickness, ED 8.24 mm IVS/LVPW ratio, ED *1.4 <1.3 Ventricular septum Septal thickness, ED 11.5 mm Left atrium Anterior-posterior dimension 47 mm Right ventricle RV internal dimension, ED, PLAX 22.7 mm 19-38 DOPPLER MEASUREMENTS ADULT Normal Aortic valve Peak velocity, S 152 cm/s Mitral valve Peak E-wave velocity 57.5 cm/s Peak A-wave velocity 28.5 cm/s Peak E/A ratio 2 Tricuspid valve Regurgitant peak velocity 175 cm/s Peak RV-RA gradient, S 12 mm Hg Maximal regurgitant velocity 175 cm/s LEGEND: Mean values are shown as u=mean value. Asterisk (*) chung values outside specified normal range. Prepared and signed by Jose Malik [id number]
[2016-06-11] MEDS: ATORVASTATIN 20 MG TAB PO SCH (20:32)
--- NOTE | 2016-06-11 20:38 | HHI.PR ---
Subjective History of Present Illness feels better less coughing Breathing is ok No CP No fever or chills NO CP NO N/V c/o b/l shoulder chronic mild discomfort & limited mobility Vitals/Results Intake & Output 06/10/16 06/10/16 06/11/16 15:00 23:00 07:00 Intake Total 1325 ml Output Total 475 ml Balance 850 ml Intake Oral 700 ml IV Total 625 ml Output Urine Total 475 ml # Voids 2 # Bowel Movements 0 Vital Signs Vital Signs Date Time Temp Pulse Resp B/P Pulse Ox O2 Delivery O2 Flow Rate FiO2 06/11/16 18:00 80 06/11/16 17:00 82 06/11/16 16:00 87 06/11/16 15:00 98.1 96 17 120/70 96 06/11/16 15:00 79 06/11/16 14:00 87 06/11/16 13:00 101 06/11/16 12:00 106 06/11/16 11:00 98.0 93 18 120/78 96 06/11/16 11:00 101 06/11/16 10:00 106 06/11/16 09:37 93 06/11/16 09:00 105 06/11/16 08:00 84 06/11/16 07:00 98.1 73 17 125/77 97 06/11/16 07:00 82 06/11/16 07:00 97 Room Air 06/11/16 06:00 79 06/11/16 05:00 74 06/11/16 04:10 Room Air 06/11/16 04:10 98.4 82 18 110/72 96 06/11/16 04:00 82 06/11/16 03:00 80 06/11/16 02:00 79 06/11/16 01:00 82 06/11/16 00:00 98.2 65 20 118/72 96 06/11/16 00:00 Room Air 06/11/16 00:00 65 06/10/16 23:00 77 06/10/16 22:00 75 06/10/16 21:00 71 CBC/BMP: 06/11/16 0450 06/10/16 0335 Lab Results Laboratory Tests Test 06/11/16 04:50 White Blood Count 5.8 TH/MM3 Red Blood Count 5.29 MIL/MM3 Hemoglobin 13.3 GM/DL Hematocrit 41.7 % Mean Corpuscular Volume 78.9 FL Mean Corpuscular Hemoglobin 25.1 PG Mean Corpuscular Hemoglobin 31.9 % Concent Red Cell Distribution Width 16.4 % Platelet Count 62 TH/MM3 Mean Platelet Volume 9.6 FL Physical Exam General General Appearance: No Acute Distress, Comfortable, Obese Eyes Eye Exam: Pupils Equal, Sclera White, Extraocular Movement Intact Ears & Nose Ears & Nose Exam: Tympanic Membranes Normal, Auditory Canals Normal Throat Throat Exam: Oral Mucosa [place] & Moist Neck Neck Exam: Neck Supple, Trachea Midline Pulmonary Resp Exam: Clear Bilaterally, Breath Sounds Equal Cardiology CV Exam: Regular, Normal Sinus Rhythm Gastrointestinal/Abdomen GI Exam: Soft, Non-Tender, Bowel Sounds Present Musculoskeletal MS Remarks decreased b/l shoulder movement Extremeties Extremities Exam: No Edema, Pedal Pulses Palpable Neurologic Neuro Exam: Alert, Awake, Oriented, Speech Clear, Moving All Extremities Psychiatric Psych Exam: Appropriate Responses PUD Prophylasis PUD Prophylaxis: Protonix Assessment/Plan Assessment/Plan Assessment and Plan Assessment/plan: 1. Atrial fibrillation with rapid ventricular rate. 2. Pneumonia 3. Possible sepsis 4. Generalized weakness 5. Hypertension 6. Hyperlipidemia 7. History of coronary artery disease 8. History of abdominal aneurysm repair. 9. History of bilateral femoral aneurysm repair. 10. Depression 11. Thrombocytopenia . PLAN O2 fluid restriction Telemetry monitoring. Troponin q6hrs x2 neg HR is controlled . On cardizem 30mg po q6hrs. /BB Appreciate cardiology input. 2 Decho [p] Continue empiric abx / will change to po abx Low platelets ?? etiology , stable cont xarelto obtain heme consult , f/u platelet count Lipids/TSH wnl. PT eval DVT prophylaxis with Xarelto. GI prophylaxis with protein pump inhibitor. d/w patient ss for d/ planning am labs will f/u Heidy Flores MD June 11, 2016 20:38
[2016-06-11] MEDS: ACETAMINOPHEN/HYDROcodone 325 MG/10 MG TAB PO PRN (22:05)
[2016-06-12] VITALS (23 sets, daily range): BP systolic 100–147; BP diastolic 62–82; PULSE 62–105; RESP 18; TEMP 97.5–98.3; O2SAT 63–98
[2016-06-12 06:55] LABS: HEMATOCRIT 43.1 % (39.0-51.0); MEAN CELL VOLUME 78.3 FL (80.0-100.0); MEAN CORPUSCULAR HEMOGLOBIN 25.2 PG (27.0-34.0); MEAN CORPUSCULAR HGB CONC 32.2 % (32.0-36.0); PLATELET COUNT 87 TH/MM3 (150-450); RED CELL DISTRIBUTION WIDTH 16.3 % (11.6-17.2); WHITE BLOOD COUNT 6.2 TH/MM3 (4.0-11.0)
--- NOTE | 2016-06-12 07:06 | MB ---
cc: BALDO VALIENTE DATE OF CONSULTATION 06/11/2016 DATE OF 1935 REASON FOR CONSULTATION Patient with thrombocytopenia. CHIEF COMPLAINT "I am doing better." HISTORY OF PRESENT ILLNESS Mr. Colin is an 80-year-old gentleman who presented to the emergency department with complaints of generalized weakness. This was preceded by abdominal pain, nausea and vomiting and he had loose stools. He recently arrived to the [facility] from [place]. He was tachycardic and was found to be in atrial fibrillation with rapid ventricular rate. The patient was started on a Diltiazem drip on admission. Cardiology was consulted. He was rate controlled successfully with Diltiazem drip. The patient is on chronic oral anticoagulation with Xarelto. Eventually the Diltiazem drip was titrated off and his beta wendy was increased by cardiology. He is clinically doing better. His dyspnea has improved. He was also started on IV antibiotics for possible infection on admission. The patient was found to have thrombocytopenia on admission with a platelet count of 78,000 which had declined to 62,000 today. Hematology has been consulted to make further recommendations. Upon review of records, it appears that the patient had a mild thrombocytopenia dating back to 2012. His platelet count at that time was 139,000. The patient has never seen a restrike hammer operator before for evaluation of his thrombocytopenia. The patient tells me that he is unaware of any blood abnormalities in the past. The patient had a CT scan of the abdomen which showed cholelithiasis. There were faint focal hyperdensities in the liver which were nonspecific. A follow up abdominal MRI was recommended. REVIEW OF SYSTEMS A comprehensive 14-point review of systems was completed which is negative except as described in the HPI. PAST MEDICAL HISTORY 1. Atrial fibrillation 2. Congestive heart failure 3. Hypertension 4. Hyperlipidemia 5. Coronary artery disease 6. History of aneurysms. 7. History of aortic valve replacement. PAST SURGICAL HISTORY 1. Abdominal in an aneurysm repaired 2010. 2. Aortic aneurysm repair. 3. 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 FAMILY HISTORY Significant for coronary artery disease. SOCIAL HISTORY He is retired. He quit smoking approximately 25 years ago. He smoked approximately 15 pack-years. No history of alcohol abuse or illicit drug use. MEDICATIONS 1. Metoprolol 100 mg p.o. daily 2. Azithromycin 500 mg q.24 h 3. Ceftriaxone 1000 mg q.24 h 4. Diltiazem 30 mg p.o. q.i.d. 5. Atorvastatin 20 mg p.o. q.h.s. 6. Colace 100 mg p.o. q.12 h 7. Pepcid 20 mg p.o. b.i.d. 8. Xarelto 20 mg p.o. daily 9. Tylenol 650 mg p.o. q.4 h p.r.n. 10. Zofran 4 mg IV q.6 h p.r.n. 11. Iron sulfate 325 mg p.o. daily 12. [place] 10/325.526 p.r.n. p.o. 13. Zoloft 50 mg tablet p.o. daily 14. Diltiazem 15. GTT has been stopped. ALLERGIES NO KNOWN DRUG ALLERGIES. PHYSICAL EXAMINATION VITAL SIGNS: Blood pressure is 107/66, pulse is in the 70s, temperature is 97.7. GENERAL: A well-developed, well-nourished elderly male in no apparent distress. HEENT: Pupils are equal, round, reactive to light. EOMI. No oral thrush. No oral lesions. NECK: Supple. No JVD, no bruits. No lymphadenopathy. CHEST: Clear to auscultation bilaterally. CARDIAC: S1-S2 regular rate and rhythm. ABDOMEN: Distended due to obesity, unable to palpate liver or spleen. Bowel sounds are present. EXTREMITIES: Without any edema, erythema or cyanosis. SKIN: Without any petechiae, lesion or bruises. NEUROLOGIC: No focal deficits. PSYCHIATRIC: Mood and affect is appropriate. LABORATORY DATA WBC 5.80, hemoglobin 13.3, MCV 78.9, platelet count is 62. Serum chemistries show a sodium of 137, potassium 3.6, chloride 101, BUN 20, creatinine 0.91, calcium 88, glucose 96. B12 453. IMAGING Imaging was reviewed in the EMR ASSESSMENT/PLAN This is an 80-year-old gentleman with a past medical history of atrial fibrillation, coronary artery disease, hypertension, hyperlipidemia, history of aortic aneurysm and aortic valve repair, history of femoral aneurysms with stent placement, history of abdominal aneurysm repair in 2010 who presents with nausea, vomiting, and abdominal pain and was found to be in atrial fibrillation with RVR. He was found to be thrombocytopenic with a platelet count of 78,000. 1. Thrombocytopenia. This could be acute on chronic thrombocytopenia due to his acute illness. His platelet count was documented to be 134,000 in 2012. Differential diagnosis includes chronic ITP versus DIC due to acute illness. This appears to be less likely TTP. We will review a peripheral smear. We will check a hepatitis panel. CT of the abdomen does not show any liver cirrhosis or hepatosplenomegaly. Would check an LDH and haptoglobin. Check a DIC panel including fibrinogen. There is also a possibility of underlying MDS or a myeloproliferative disorder. This workup can be completed in an outpatient setting. 2. Microcytosis-- possibly has underlying iron deficiency. Obtain anemia studies including iron levels. 3. Atrial fibrillation with RVR now rate control. He is currently on Xarelto. Thank you for allowing me to participate in the care of this patient. I will continue to follow this patient along. MD NAIMA Abreu/BRENDA /11:47 PM /6:48 AM MTDD
[2016-06-12 07:07] LABS: REVIEW FLAG FINAL
[2016-06-12 07:22] LABS: INDIRECT BILIRUBIN 0.6 MG/DL (0.0-0.8); TOTAL BILIRUBIN ADULT 1.2 MG/DL (0.2-1.0)
[2016-06-12] MEDS: DOCUSATE SODIUM 100 MG CAP PO SCH ×2 (08:16→21:31)
[2016-06-12] MEDS: METOPROLOL SUCCINATE 50 MG EXTENDED RELEASE TAB PO SCH (08:16)
[2016-06-12] MEDS: DILTIAZEM HCL 30 MG TAB PO SCH (08:16)
[2016-06-12] MEDS: FAMOTIDINE 20 MG TAB PO SCH ×2 (08:17→21:31)
[2016-06-12] MEDS: FERROUS SULFATE 325 MG (65 MG ELEMENTAL IRON) TAB PO SCH (08:17)
[2016-06-12] MEDS: SERTRALINE HCL 50 MG TAB PO SCH (08:17)
[2016-06-12] MEDS: SODIUM CHLORIDE 0.9% FLUSH 10 ML FLUSH IV FLUSH SCH ×2 (08:19→21:00)
--- NOTE | 2016-06-12 10:58 | HHI.PR ---
Subjective History of Present Illness feels good / eager to get out of here cough is better Breathing is ok No CP No fever or chills NO CP NO N/V no abd pain good appetite no melena or BRBPR c/o b/l shoulder chronic mild discomfort & limited mobility Vitals/Results Intake & Output 06/11/16 06/11/16 06/12/16 15:00 23:00 07:00 Intake Total 240 ml 1222 ml 240 ml Output Total 700 ml 1100 ml Balance 240 ml 522 ml -860 ml Intake Oral 240 ml 1222 ml 240 ml Output Urine Total 700 ml 1100 ml # Voids 2 3 # Bowel Movements 1 1 1 Vital Signs Vital Signs Date Time Temp Pulse Resp B/P Pulse Ox O2 Delivery O2 Flow Rate FiO2 06/12/16 10:04 78 06/12/16 09:43 74 06/12/16 07:35 97.6 66 18 139/82 98 06/12/16 07:35 Room Air 06/12/16 07:35 62 06/12/16 06:00 74 06/12/16 05:00 74 06/12/16 04:00 72 06/12/16 03:00 98.3 73 111/72 63 06/12/16 03:00 62 06/12/16 02:00 74 06/12/16 01:00 70 06/12/16 00:00 68 06/11/16 23:00 97.4 73 124/74 95 06/11/16 23:00 63 06/11/16 22:00 82 06/11/16 21:00 70 06/11/16 20:00 76 06/11/16 19:00 Room Air 06/11/16 19:00 97.7 72 107/66 97 06/11/16 19:00 71 06/11/16 18:00 80 06/11/16 17:00 82 06/11/16 16:00 87 06/11/16 15:00 98.1 96 17 120/70 96 06/11/16 15:00 79 06/11/16 14:00 87 06/11/16 13:00 101 06/11/16 12:00 106 06/11/16 11:00 98.0 93 18 120/78 96 06/11/16 11:00 101 CBC/BMP: 06/12/16 0448 06/10/16 0335 Lab Results Laboratory Tests Test 06/12/16 04:48 White Blood Count 6.2 TH/MM3 Red Blood Count 5.50 MIL/MM3 Hemoglobin 13.9 GM/DL Hematocrit 43.1 % Mean Corpuscular Volume 78.3 FL Mean Corpuscular Hemoglobin 25.2 PG Mean Corpuscular Hemoglobin 32.2 % Concent Red Cell Distribution Width 16.3 % Platelet Count 87 TH/MM3 Mean Platelet Volume 9.2 FL Blood Smear Pathologist Review Haptoglobin 173 MG/DL Fibrinogen 423 mg/dL Total Bilirubin 1.2 MG/DL Direct Bilirubin 0.6 MG/DL Indirect Bilirubin 0.6 MG/DL Aspartate Amino Transf 38 U/L (AST/SGOT) Alanine Aminotransferase 113 U/L (ALT/SGPT) Alkaline Phosphatase 182 U/L Lactate Dehydrogenase 216 U/L Total Protein 6.0 GM/DL Physical Exam General General Appearance: No Acute Distress, Comfortable, Obese Eyes Eye Exam: Pupils Equal, Sclera White, Extraocular Movement Intact Ears & Nose Ears & Nose Exam: Tympanic Membranes Normal, Auditory Canals Normal Throat Throat Exam: Oral Mucosa [place] & Moist Neck Neck Exam: Neck Supple, Trachea Midline Pulmonary Resp Exam: Clear Bilaterally, Breath Sounds Equal Cardiology CV Exam: Regular, Normal Sinus Rhythm Gastrointestinal/Abdomen GI Exam: Soft, Non-Tender, Bowel Sounds Present Musculoskeletal MS Remarks decreased b/l shoulder movement Extremeties Extremities Exam: No Edema, Pedal Pulses Palpable Neurologic Neuro Exam: Alert, Awake, Oriented, Speech Clear, Moving All Extremities Psychiatric Psych Exam: Appropriate Responses PUD Prophylasis PUD Prophylaxis: Protonix Assessment/Plan Assessment/Plan Assessment and Plan Assessment/plan: 1. ch Atrial fibrillation s/p rapid ventricular rate. 2. Pneumonia , community acquired 3. s/p Possible early sepsis on admission 4. Generalized weakness 5. Hypertension 6. Hyperlipidemia 7. History of coronary artery disease 8. History of abdominal aneurysm repair. 9. History of bilateral femoral aneurysm repair. 10. Depression 11. ch Thrombocytopenia ?? etiology 12. slighty elevated LFT ?? statin induced 13. Tiny liver lesions ?? cysts , ?? solid lesion MR rec by radiology PLAN O2 fluid restriction Telemetry monitoring. Troponin q6hrs x2 neg HR is controlled . On cardizem 30mg po q6hrs. /BB Appreciate cardiology input. 2 Decho mod reduced LVF , EF 35 % Bioprosthetic Aortic valve po abx Low platelets ?? etiology , stable heme input appreciated fibrinogen Nl/haptoglobin noted repeat platelet count stable no evid of bleeding cont xarelto obtain heme consult , f/u platelet count Lipids/TSH wnl. cont statin , f/u LFT in 4 wks , if LFT worsen than d/c statin f/u acute hep panel obtain MR liver as out pt basis in 3 to 4 wks PT eval DVT prophylaxis with Xarelto. GI prophylaxis with protein pump inhibitor. d/w patient ss for d/ planning am labs will f/u Heidy Flores MD June 12, 2016 10:57
[2016-06-12 11:31] LABS: ALBUMIN SPE 3.7 GM/DL (3.50-5.00); ALPHA 1 GLOBULIN 0.28 GM/DL (0.11-0.29); ALPHA 2 GLOBULIN 0.79 GM/DL (0.22-1.00); BETA GLOBULINS (SPE) 0.68 GM/DL (0.53-1.03)
[2016-06-12] MEDS ORDERED: DILTIAZEM-CD 120 MG CAP ER PO ONE (13:00)
[2016-06-12] MEDS: RIVAROXABAN 20 MG TAB PO SCH (17:16)
--- NOTE | 2016-06-12 20:39 | PD.ONC.PN ---
Subjective Subjective Remarks doing okay. no bleeding wants to go home. plans to return to [place] soon. d/w Dr. Flores Objective Data Date Time Temp Pulse Resp B/P Pulse Ox O2 Delivery O2 Flow Rate FiO2 06/12/16 18:10 72 06/12/16 17:07 90 06/12/16 16:08 77 06/12/16 15:20 98.3 84 18 128/81 97 06/12/16 15:20 84 06/12/16 14:06 85 06/12/16 13:15 94 06/12/16 12:24 88 06/12/16 11:23 97.7 76 18 138/79 94 06/12/16 11:23 76 06/12/16 10:04 78 06/12/16 09:43 74 06/12/16 07:35 97.6 66 18 139/82 98 06/12/16 07:35 Room Air 06/12/16 07:35 62 06/12/16 06:00 74 06/12/16 05:00 74 06/12/16 04:00 72 06/12/16 03:00 98.3 73 111/72 63 06/12/16 03:00 62 06/12/16 02:00 74 06/12/16 01:00 70 06/12/16 00:00 68 06/11/16 23:00 97.4 73 124/74 95 06/11/16 23:00 63 06/11/16 22:00 82 06/11/16 21:00 70 06/12/16 06/12/16 06/12/16 07:00 15:00 23:00 Intake Total 240 ml 940 ml Output Total 1100 ml 680 ml Balance -860 ml 260 ml Result Diagram: 06/12/16 0448 06/10/16 0335 Laboratory Results Laboratory Tests Test 06/12/16 04:48 White Blood Count 6.2 TH/MM3 Red Blood Count 5.50 MIL/MM3 Hemoglobin 13.9 GM/DL Hematocrit 43.1 % Mean Corpuscular Volume 78.3 FL Mean Corpuscular Hemoglobin 25.2 PG Mean Corpuscular Hemoglobin 32.2 % Concent Red Cell Distribution Width 16.3 % Platelet Count 87 TH/MM3 Mean Platelet Volume 9.2 FL Blood Smear Pathologist Review Haptoglobin 173 MG/DL Fibrinogen 423 mg/dL Total Bilirubin 1.2 MG/DL Direct Bilirubin 0.6 MG/DL Indirect Bilirubin 0.6 MG/DL Aspartate Amino Transf 38 U/L (AST/SGOT) Alanine Aminotransferase 113 U/L (ALT/SGPT) Alkaline Phosphatase 182 U/L Lactate Dehydrogenase 216 U/L Total Protein 6.0 GM/DL Albumin 3.70 GM/DL Albumin/Globulin Ratio 1.60 Cdhrx-2-Irffhvspq 0.28 GM/DL Wjjpk-4-Kynhpnugf 0.79 GM/DL Beta Globulins 0.68 GM/DL Gamma Globulins 0.56 GM/DL Electrophoresis Pathologist Comment Hepatitis B Surface Antigen NEGATIVE Hepatitis B Core IgM Antibody NEGATIVE Hepatitis C Antibody NEGATIVE HIV (1&2) Antibody NEGATIVE Administered Medications Medications (Trade) Dose Ordered Sig/Chanel Route PRN Reason Start Time Stop Time Status Last Admin Dose Admin Diltiazem HCl/ Sodium Chloride (Cardizem Inj/NS Inj) 125 ml @ 0 mls/hr TITRATE IV 06/09/16 13:30 06/09/16 13:59 Atorvastatin Calcium (Lipitor) 20 mg HS PO 06/09/16 21:00 06/11/16 20:32 Ferrous Sulfate (Ferrous Sulfate) 325 mg DAILY PO 06/09/16 16:00 06/12/16 08:17 Acetaminophen/ Hydrocodone Bitart ([place]ing 10-325 Mg) 0.5 tab Q6H PRN PO PAIN 1-10 06/09/16 16:00 06/11/16 22:05 Sertraline HCl (Zoloft) 50 mg DAILY PO 06/09/16 16:00 06/12/16 08:17 Sodium Chloride (NS Flush) 2 ml BID IV FLUSH 06/09/16 21:00 06/12/16 08:19 Docusate Sodium (Colace) 100 mg Q12H PO 06/09/16 21:00 06/12/16 08:16 Famotidine (Pepcid) 20 mg BID PO 06/09/16 21:00 06/12/16 08:17 Metoprolol Succinate (Toprol Xl) 100 mg DAILY PO 06/12/16 09:00 06/12/16 08:16 Objective Remarks GENERAL: nad SKIN: Warm and dry. NECK: Supple, trachea midline. No JVD or lymphadenopathy. LYMPHATIC: No adenopathy. CARDIOVASCULAR: Regular rate and rhythm without murmurs. RESPIRATORY: Breath sounds equal bilaterally. No accessory muscle use. GASTROINTESTINAL: Abdomen soft, non-tender, nondistended. EXTREMITIES: No cyanosis, or edema. Assessment/Plan Problem List: (1) Sepsis Status: Acute (2) Atrial fibrillation with RVR Status: Acute (3) PNA (pneumonia) Status: Acute (4) Thrombocytopenia Status: Acute Assessment 80-year-old gentleman with a past medical history of atrial fibrillation, coronary artery disease, hypertension, hyperlipidemia, history of aortic aneurysm and aortic valve repair, history of femoral aneurysms with stent placement, history of abdominal aneurysm repair in 2010 who presents with nausea , vomiting, and abdominal pain and was found to be in atrial fibrillation with RVR. He was found to be thrombocytopenic with a platelet count of 78,000. 1. Acute on Chronic Thrombocytopenia. - PLts stable today. No evidence of DIC or Microangiopathic hemolysis - Possibility of Chronic ITP or MDS vs myeloproliferative disorder. No hepato- splenomegaly. Hepatitis panel negative. SPEP negative. B12 and Folate levels pending. - Outpatient f/u and further w/u - 2. Microcytosis-- possibly has underlying iron deficiency. anemia studies including iron levels Pending. 3. Atrial fibrillation with RVR now rate control. He is currently on Xarelto. Problem Qualifiers (1) Sepsis: Qualified Code: A41.9 - Sepsis, due to unspecified organism (2) PNA (pneumonia): Qualified Code: J18.1 - Pneumonia of left lower lobe due to infectious organism Ricardo Ashford MD June 12, 2016 20:39
[2016-06-12] MEDS: CEFUROXIME AXETIL 500 MG TAB PO SCH (21:31)
[2016-06-12] MEDS: ATORVASTATIN 20 MG TAB PO SCH (21:31)
[2016-06-12] MEDS: ACETAMINOPHEN/HYDROcodone 325 MG/10 MG TAB PO PRN (21:37)
[2016-06-13] VITALS (20 sets, daily range): BP systolic 116–137; BP diastolic 75–80; PULSE 66–88; TEMP 97.7–97.9; O2SAT 94–97
[2016-06-13 06:53] LABS: ALT (GPT) 103 U/L (12-78); AST (GOT) 36 U/L (15-37); TRANSFERRIN IRON PROFILE 201 MG/DL (200-360)
[2016-06-13 07:18] LABS: ALKALINE PHOSPHATASE 195 U/L (45-117); INDIRECT BILIRUBIN 0.6 MG/DL (0.0-0.8); TOTAL BILIRUBIN ADULT 1.1 MG/DL (0.2-1.0)
[2016-06-13] MEDS: METOPROLOL SUCCINATE 50 MG EXTENDED RELEASE TAB PO SCH (08:24)
[2016-06-13] MEDS: SERTRALINE HCL 50 MG TAB PO SCH (08:24)
[2016-06-13] MEDS: DOCUSATE SODIUM 100 MG CAP PO SCH (08:24)
[2016-06-13] MEDS: CEFUROXIME AXETIL 500 MG TAB PO SCH (08:25)
[2016-06-13] MEDS: SODIUM CHLORIDE 0.9% FLUSH 10 ML FLUSH IV FLUSH SCH (08:25)
[2016-06-13] MEDS: FERROUS SULFATE 325 MG (65 MG ELEMENTAL IRON) TAB PO SCH (08:25)
[2016-06-13] MEDS: FAMOTIDINE 20 MG TAB PO SCH (08:25)
[2016-06-13] MEDS ORDERED: AZITHROMYCIN 250 MG TAB PO SCH (09:00)
[2016-06-13] MEDS ORDERED: DILTIAZEM-CD 120 MG CAP ER PO SCH (09:00)
[2016-06-13] MEDS ORDERED: LISINOPRIL 5 MG TAB PO SCH (09:00)
--- NOTE | 2016-06-13 11:38 | HHI.PR ---
Subjective History of Present Illness feels well Ready to get out of here /no new problems cough is better Breathing is ok No CP No fever or chills NO CP NO N/V no abd pain good appetite no melena or BRBPR Offers no other complaints Vitals/Results Intake & Output 06/12/16 06/12/16 06/13/16 15:00 23:00 07:00 Intake Total 940 ml Output Total 680 ml Balance 260 ml Intake Oral 940 ml Output Urine Total 680 ml # Bowel Movements 0 Vital Signs Vital Signs Date Time Temp Pulse Resp B/P Pulse Ox O2 Delivery O2 Flow Rate FiO2 06/13/16 11:30 88 06/13/16 11:30 97.8 88 137/75 94 06/13/16 10:47 72 06/13/16 09:43 83 06/13/16 08:00 82 06/13/16 07:30 95 Room Air 06/13/16 07:30 76 06/13/16 07:30 97.7 85 125/80 95 06/13/16 06:00 76 06/13/16 05:00 68 06/13/16 04:20 97.8 73 117/79 97 06/13/16 04:00 70 06/13/16 03:00 67 06/13/16 02:00 68 06/13/16 01:00 66 06/13/16 00:00 78 06/12/16 23:00 97.8 67 100/62 94 06/12/16 23:00 105 06/12/16 22:00 72 06/12/16 21:00 84 06/12/16 20:00 84 06/12/16 19:00 75 06/12/16 19:00 97.5 74 147/81 96 06/12/16 19:00 Room Air 06/12/16 18:10 72 06/12/16 17:07 90 06/12/16 16:08 77 06/12/16 15:20 98.3 84 18 128/81 97 06/12/16 15:20 84 06/12/16 14:06 85 06/12/16 13:15 94 06/12/16 12:24 88 CBC/BMP: 06/12/16 0448 06/10/16 0335 Lab Results Laboratory Tests Test 06/13/16 05:25 Iron Level 45 MCG/DL Total Iron Binding Capacity 281 MCG/DL Percent Iron Saturation 16.0 % Transferrin 201 MG/DL Total Bilirubin 1.1 MG/DL Direct Bilirubin 0.5 MG/DL Indirect Bilirubin 0.6 MG/DL Aspartate Amino Transf 36 U/L (AST/SGOT) Alanine Aminotransferase 103 U/L (ALT/SGPT) Alkaline Phosphatase 195 U/L Total Protein 6.1 GM/DL Albumin 3.0 GM/DL Vitamin B12 Level 504 PG/ML Physical Exam General General Appearance: No Acute Distress, Comfortable, Obese Eyes Eye Exam: Pupils Equal, Sclera White, Extraocular Movement Intact Ears & Nose Ears & Nose Exam: Tympanic Membranes Normal, Auditory Canals Normal Throat Throat Exam: Oral Mucosa [place] & Moist Neck Neck Exam: Neck Supple, Trachea Midline Pulmonary Resp Exam: Clear Bilaterally, Breath Sounds Equal Cardiology CV Exam: Regular, Normal Sinus Rhythm Gastrointestinal/Abdomen GI Exam: Soft, Non-Tender, Bowel Sounds Present Musculoskeletal MS Remarks decreased b/l shoulder movement Extremeties Extremities Exam: No Edema, Pedal Pulses Palpable Neurologic Neuro Exam: Alert, Awake, Oriented, Speech Clear, Moving All Extremities Psychiatric Psych Exam: Appropriate Responses PUD Prophylasis PUD Prophylaxis: Protonix Assessment/Plan Assessment/Plan Assessment and Plan Assessment/plan: 1. ch Atrial fibrillation s/p rapid ventricular rate. 2. Pneumonia , community acquired 3. s/p Possible early sepsis on admission 4. Generalized weakness 5. Hypertension 6. Hyperlipidemia 7. History of coronary artery disease 8. History of abdominal aneurysm repair. 9. History of bilateral femoral aneurysm repair. 10. Depression 11. ch Thrombocytopenia ?? etiology 12. slighty elevated LFT ?? statin induced 13. Tiny liver lesions ?? cysts , ?? solid lesion MR rec by radiology PLAN O2 fluid restriction Telemetry monitoring. Troponin q6hrs x2 neg HR is controlled . On Cardizem CD & BB . Control Appreciate cardiology input. 2 Decho mod reduced LVF , EF 35 % Bioprosthetic Aortic valve Low-dose KOSTA inhibitor was started, so far tolerating it, BP stable po abx Low platelets ?? etiology , stable heme input appreciated fibrinogen Nl/haptoglobin noted repeat platelet count stable no evid of bleeding cont xarelto Lipids/TSH wnl. cont statin , LFT stable Acute hep panel negative f/u LFT in 4 wks , if LFT worsen than d/c statin obtain MR liver as out pt basis in 3 to 4 wks PT eval DVT prophylaxis with Xarelto. GI prophylaxis with protein pump inhibitor. Medically stable for discharge Cleared by hematology for discharge also, discussed with Dr. Ashford yesterday DC to SNF today d/w patient See med rec sheet See HRS form Follow with PCP Follow-up with card and hematology Discussed patient Discussed with Heidy Quevedo MD June 13, 2016 11:38
[2016-06-13] MEDS ORDERED: METO50TA11 PO (12:13)
[2016-06-13] MEDS ORDERED: AZIT250T3 PO (12:13)
[2016-06-13] MEDS ORDERED: CARD120C4 PO (12:13)
[2016-06-13] MEDS ORDERED: HYDR-3583 PO (12:13)
[2016-06-13] MEDS ORDERED: CEFT500T3 PO (12:13)
[2016-06-13] MEDS: RIVAROXABAN 20 MG TAB PO SCH (17:48)
--- NOTE | 2016-06-13 18:48 | HHI.DS ---
Discharge Summary Admission Date Jun 09, 2016 at 14:47 Discharge Date: June 13, 2016 Admitting Diagnosis AFib RVR; Sepsis (PNA) (1) Sepsis (2) Atrial fibrillation with RVR (3) PNA (pneumonia) (4) Thrombocytopenia (5) Cardiomyopathy (6) Valvular disease CBC/BMP: 06/12/16 0448 06/10/16 0335 Significant Findings Laboratory Tests Test 06/11/16 06/12/16 06/13/16 04:50 04:48 05:25 Mean Corpuscular Volume 78.9 FL 78.3 FL (80.0-100.0) (80.0-100.0) Mean Corpuscular Hemoglobin 25.1 PG 25.2 PG (27.0-34.0) (27.0-34.0) Mean Corpuscular Hemoglobin 31.9 % Concent (32.0-36.0) Platelet Count 62 TH/MM3 87 TH/MM3 (150-450) (150-450) Fibrinogen 423 mg/dL (181-393) Total Bilirubin 1.2 MG/DL 1.1 MG/DL (0.2-1.0) (0.2-1.0) Direct Bilirubin 0.6 MG/DL 0.5 MG/DL (0.0-0.2) (0.0-0.2) Aspartate Amino Transf 38 U/L (15-37) (AST/SGOT) Alanine Aminotransferase 113 U/L (12-78) 103 U/L (12-78) (ALT/SGPT) Alkaline Phosphatase 182 U/L 195 U/L (45-117) (45-117) Iron Level 45 MCG/DL (65-175) Percent Iron Saturation 16.0 % (20-50) Total Protein 6.1 GM/DL (6.4-8.2) Albumin 3.0 GM/DL (3.4-5.0) Imaging Last Impressions Chest X-Ray 06/09/16 1324 Signed Impressions: Service Date/Time: Thursday, June 09, 2016 13:21 - CONCLUSION: Left basilar airspace disease. Moe Houston MD Abdomen CT 06/09/16 0000 Signed Impressions: Service Date/Time: Friday, June 10, 2016 13:47 - CONCLUSION: 1. Cholelithiasis. No pericholecystic inflammatory changes. 2. Faint focal hyperdensities in the liver are nonspecific. Recommend routine followup abdominal MRI with and without contrast to evaluate for hepatic mass versus vascular phenomenon. Dov Moore MD Hospital Course The patient is a pleasant 80 year old white male who presented to the emergency room with complaints of 3-4 days of generalized weakness. Per patient, two days ago he had abdominal pain, nausea and vomiting, also had been having loose stools and has no noticed that he has been becoming progressively weak. He denied any chest pain or palpitation. He denied any shortness of breath. The Emergency Medical Service reports on the scene the pulses was almost 200. He received Diltiazem en route and it decreased to about 100. At the time of presentation to the emergency room, the pulse was noted to be 124 and the patient was started on Diltiazem drip. Pt. admitted and evaluated in the ED LABORATORY DATA WBCs 7.2, hemoglobin 14.9, hematocrit 45.5, platelets 78,000. Sodium 139, potassium 3.7, BUN 21, creatinine 0.99, magnesium 2.1, troponin I 0.03. PT 15.4, INR 1.4, BNP 285. IMAGING STUDIES Chest x-ray - left basilar airspace disease, cardiomegaly, sternotomy ____ aortic calcification. CARDIOLOGY STUDIES 12 lead electrocardiogram, irregularly irregular with tachycardia. Patient was admitted for: 1. ch Atrial fibrillation s/p rapid ventricular rate. 2. Pneumonia , community acquired 3. s/p Possible early sepsis on admission 4. Generalized weakness 5. Hypertension 6. Hyperlipidemia 7. History of coronary artery disease 8. History of abdominal aneurysm repair. 9. History of bilateral femoral aneurysm repair. 10. Depression 11. ch Thrombocytopenia ?? etiology 12. slighty elevated LFT ?? statin induced 13. Tiny liver lesions ?? cysts , ?? solid lesion MR rec by radiology During the course of the hospitalization, the following took place Patient admitted to [facility], put on continuous cardiac telemetry Serial troponin order Continued on diltiazem drip Cardiology consulted Patient was started on empiric antibiotics, Rocephin and Zithromax Lipid profile, TSH and free T4 were obtained Oxygen at 2 L was ordered to keep sats greater than 92 2-D echo ordered Deep venous thrombosis prophylaxis with Xarelto. GI prophylaxis with protein pump inhibitor. Patient was put on fluid restriction Troponin were follow, they were negative. Heart rate was controlled, was transitioned to oral diltiazem, also started on BB 2-D echo was done, EF mod reduced LVF , EF 35 %/Bioprosthetic Aortic valve Low-dose KOSTA inhibitor was started, tolerated well Was noted with low platelets, etiology was unclear Hematology was consulted CT of the abdomen with findings as above. Recommended to have MR liver as out pt basis in 3 to 4 wks Per hematology, PLts stable today. No evidence of DIC or Microangiopathic hemolysis. Possibility of Chronic ITP or MDS vs myeloproliferative disorder. No hepato-splenomegaly. Hepatitis panel negative. SPEP negative. B12 and Folate levels pending. Outpatient f/u and further w/u fibrinogen Nl/haptoglobin noted repeat platelet count stable no evid of bleeding continued xarelto Recommended to have follow-up as outpatient. Noted with elevated LFTs, Acute hep panel negative Continued on statin f/u LFT in 4 wks , if LFT worsen than d/c statin Continued on oral antibiotics, tolerated well Cultures remain negative PT was ordered, patient was recommended SNF Cleared by hematology for discharge also, discussed with Dr. Ashford per attending Discharged to to SNF See med rec sheet See HRS form Follow with PCP Follow-up with card and hematology Discussed patient Discussed with RN Pt Condition on Discharge: Stable Discharge Disposition: Discharge to SNF Discharge Instructions DIET: Follow Instructions for: Heart Healthy Diet Fluid Restrictions: 1600CC/DAY Activities you can perform: Weight Bearing as Joan Follow up Referrals: Cardiology - 3 Weeks Oncology - 1 Month with NEHEMIAS PCP Follow-up - 1 Week New Medications: Azithromycin (Azithromycin) 250 Mg Tab 500 MG PO DAILY pna #6 TAB Cefuroxime (Ceftin) 500 Mg Tab 500 MG PO Q12HR pna #12 TAB Diltiazem CD 24 HR (Cardizem CD 24 HR) 120 Mg Caper 120 MG PO DAILY a fib #30 CAP Hydrocodone-Acetaminophen (Hydrocodone-Acetaminophen) 10-325 mg Tab 0.5 TAB PO Q6H PRN PAIN 1-10 #30 TAB Metoprolol Succinate ER 24 HR (Metoprolol Succinate ER 24 HR) 50 Mg Tab 100 MG PO DAILY a fib #60 TAB Continued Medications: Atorvastatin (Lipitor) 20 Mg Tab 20 MG PO HS Cholesterol Management #30 Ref 0 TAB Docusate Sodium (Colace) 100 Mg Cap 100 MG PO DAILY PRN Constipation #60 Ref 0 CAP Ferrous Sulfate (Ferrous Sulfate) 325 Mg Tab 325 MG PO DAILY Nutritional Supplement #30 Ref 0 TAB Furosemide (Lasix) 20 Mg Tab 20 MG PO WEEKLY #60 Ref 0 TAB [facility]-3 Fatty Acids ([facility] 3 1000 mg) 1 Cap Cap 3000 MG PO DAILY Potassium Chloride Microencaps (Klor-Con M10) 10 Meq Tab 10 MEQ PO TWICE A WEEK Electrolyte Replacement #30 Ref 0 TAB Rivaroxaban (Xarelto) 20 Mg Tab 20 MG PO DAILY IN THE EVENING Blood Clot Prevention Ref 0 TAB Sertraline (Sertraline) 50 Mg Tab 50 MG PO DAILY #30 Ref 0 TAB Discontinued Medications: Hydrocodone-Acetaminophen (Vicodin Hp) 10-300 Tab 0.5 TAB PO Q6H PRN PAIN Ref 0 TAB Metoprolol Succinate ER 24 HR (Toprol XL) 50 Mg Tab 50 MG PO DAILY #30 Ref 0 TAB Meri OwensP June 13, 2016 18:48 Potassium Chloride Microencaps (Klor-Con M10) 10 Meq Tab 10 MEQ PO TWICE A WEEK Electrolyte Replacement #30 Ref 0 TAB Rivaroxaban (Xarelto) 20 Mg Tab 20 MG PO DAILY IN THE EVENING Blood Clot Prevention Ref 0 TAB Sertraline (Sertraline) 50 Mg Tab 50 MG PO DAILY #30 Ref 0 TAB Discontinued Medications: Hydrocodone-Acetaminophen (Vicodin Hp) 10-300 Tab 0.5 TAB PO Q6H PRN PAIN Ref 0 TAB Metoprolol Succinate ER 24 HR (Toprol XL) 50 Mg Tab 50 MG PO DAILY #30 Ref 0 TAB Meri Owens June 13, 2016 18:48
--- NOTE | 2016-06-13 23:28 | PD.ONC.PN ---
Subjective Subjective Remarks wants to go home plt count stable ok to d/c from hematology standpoint O/P f/u in 1-2 weeks Objective Data Date Time Temp Pulse Resp B/P Pulse Ox O2 Delivery O2 Flow Rate FiO2 06/13/16 18:07 84 06/13/16 17:02 80 06/13/16 16:06 83 06/13/16 15:17 97.9 84 116/77 95 06/13/16 15:17 66 06/13/16 14:34 71 06/13/16 13:07 84 06/13/16 12:04 86 06/13/16 11:30 88 06/13/16 11:30 97.8 88 137/75 94 06/13/16 10:47 72 06/13/16 09:43 83 06/13/16 08:00 82 06/13/16 07:30 95 Room Air 06/13/16 07:30 76 06/13/16 07:30 97.7 85 125/80 95 06/13/16 06:00 76 06/13/16 05:00 68 06/13/16 04:20 97.8 73 117/79 97 06/13/16 04:00 70 06/13/16 03:00 67 06/13/16 02:00 68 06/13/16 01:00 66 06/13/16 00:00 78 06/13/16 06/13/16 06/13/16 07:00 15:00 23:00 Intake Total 220 ml 960 ml Output Total 700 ml 700 ml Balance -480 ml 260 ml Result Diagram: 06/12/16 0448 06/10/16 0335 Laboratory Results Laboratory Tests Test 06/13/16 05:25 Iron Level 45 MCG/DL Total Iron Binding Capacity 281 MCG/DL Percent Iron Saturation 16.0 % Transferrin 201 MG/DL Total Bilirubin 1.1 MG/DL Direct Bilirubin 0.5 MG/DL Indirect Bilirubin 0.6 MG/DL Aspartate Amino Transf 36 U/L (AST/SGOT) Alanine Aminotransferase 103 U/L (ALT/SGPT) Alkaline Phosphatase 195 U/L Total Protein 6.1 GM/DL Albumin 3.0 GM/DL Vitamin B12 Level 504 PG/ML Objective Remarks GENERAL: nad SKIN: Warm and dry. HEAD: Normocephalic. EYES: No scleral icterus. No injection or drainage. NECK: Supple, trachea midline. No JVD or lymphadenopathy. LYMPHATIC: No adenopathy. CARDIOVASCULAR: Regular rate and rhythm without murmurs. RESPIRATORY: Breath sounds equal bilaterally. No accessory muscle use. GASTROINTESTINAL: Abdomen soft, non-tender, nondistended. EXTREMITIES: No cyanosis, or edema. MUSCULOSKELETAL: Adequate muscle tone. NEUROLOGICAL: No obvious focal deficit. Awake, alert, and oriented x3. PSYCHIATRIC: Appropriate mood and affect; insight and judgment normal. Assessment/Plan Problem List: (1) Sepsis Status: Acute (2) Atrial fibrillation with RVR Status: Acute (3) PNA (pneumonia) Status: Acute (4) Thrombocytopenia Status: Acute Assessment 80-year-old gentleman with a past medical history of atrial fibrillation, coronary artery disease, hypertension, hyperlipidemia, history of aortic aneurysm and aortic valve repair, history of femoral aneurysms with stent placement, history of abdominal aneurysm repair in 2010 who presents with nausea , vomiting, and abdominal pain and was found to be in atrial fibrillation with RVR. He was found to be thrombocytopenic with a platelet count of 78,000. 1. Acute on Chronic Thrombocytopenia. - PLts stable today. No evidence of DIC or Microangiopathic hemolysis - Possibility of Chronic ITP or MDS vs myeloproliferative disorder. No hepato- splenomegaly. Hepatitis panel negative. SPEP negative. B12 and Folate levels pending. - Outpatient f/u and further w/u - 2. Microcytosis-- possibly has underlying iron deficiency. anemia studies Pending 3. Atrial fibrillation with RVR now rate control. He is currently on Xarelto. Problem Qualifiers (1) Sepsis: Qualified Code: A41.9 - Sepsis, due to unspecified organism (2) PNA (pneumonia): Qualified Code: J18.1 - Pneumonia of left lower lobe due to infectious organism Ricardo Ashford MD June 13, 2016 23:28
== END 2016-06-13 18:23 | DRG 871 ==
LOC: NEPC 13:11 → NEDA 14:47 → HCIS 19:16
PROVIDERS: ADMIT Family Medicine; ATTEND Family Medicine
DX: A41.9 Sepsis, unspecified organism (principal); J18.9 Pneumonia, unspecified organism; I11.0 Hypertensive heart disease with heart failure; D69.6 Thrombocytopenia, unspecified; I42.9 Cardiomyopathy, unspecified; I50.9 Heart failure, unspecified; I48.91 Unspecified atrial fibrillation; Z95.2 Presence of prosthetic heart valve; R00.0 Tachycardia, unspecified; E78.5 Hyperlipidemia, unspecified; I25.10 Atherosclerotic heart disease of native coronary artery without angina pectoris; F32.9 Major depressive disorder, single episode, unspecified; Z79.01 Long term (current) use of anticoagulants; E66.9 Obesity, unspecified; Z68.36 Body mass index [BMI] 36.0-36.9, adult; K80.20 Calculus of gallbladder without cholecystitis without obstruction; Z87.891 Personal history of nicotine dependence; E78.00 Pure hypercholesterolemia, unspecified; D50.9 Iron deficiency anemia, unspecified
CPT/HCPCS: 71010; 74160; 80048; 80061; 80076; 82550; 82607; 82747; 83010; 83540; 83550; 83615; 83690; 83735; 83880; 84165; 84439; 84443; 84466; 84484; 85007; 85027; 85060; 85384; 85610; 85730; 86703; 86705; 86803; 87040; 87340; 93005; 93306; 96365; 96368; 96376; J0456; J0696; J7050; Q9963; Q9967